=== PATIENT | female | born 1985 | race Caucasian/White ===

== ENCOUNTER 2017-10-15 19:47 | Emergency (ER) | payer OTHER ==
[~2017-10-15] VITALS: Ht 170.2 cm; Wt 59.0 kg
[~2017-10-15 19:47] MED LIST: FLAGYL500 MG PO
[2017-10-15 20:48] LABS: ABSOLUTE BASOPHILS 0.1 thou/uL (0.0-0.2); ABSOLUTE EOSINOPHILS 0.1 thou/uL (0.0-0.7); ABSOLUTE LYMPHOCYTES 2.8 thou/uL (0.8-5.3); ABSOLUTE MONOCYTES 0.4 thou/uL (0.0-1.2); ABSOLUTE NEUTROPHILS 4.1 thou/uL (1.6-8.1); BASOPHILS 0.8 %; EOSINOPHILS 1.5 %; HEMATOCRIT 39.8 % (37.0-47.0); HEMOGLOBIN 13.2 gm/dL (12.0-15.0); LYMPHOCYTES 37.1 %; MCH 30.3 pg (26.0-34.0); MCHC 33.2 g/dL (28.0-37.0); MCV 91.1 fL (80.0-100.0); MONOCYTES 5.2 %; MPV 7.2 fl. (7.2-11.1); NUCLEATED RBCS 0 /100WBC; PLATELET COUNT* 334 thou/uL (150-400); POLYS 55.4 %; RBC 4.37 mil/uL (4.20-5.00); RDW-CV 14.3 % (10.5-14.5); WBC 7.5 thou/uL (4.0-11.0)
[2017-10-15 20:59] LABS: URINE BILIRUBIN NEGATIVE (Negative); URINE BLOOD NEGATIVE (Negative); URINE CLARITY CLEAR; URINE COLOR YELLOW; URINE GLUCOSE-RANDOM NEGATIVE (Negative); URINE KETONES NEGATIVE (Negative); URINE LEUKOCYTES-REFLEX NEGATIVE (Negative); URINE NITRITE-REFLEX NEGATIVE (Negative); URINE PROTEIN NEGATIVE (Negative); URINE UROBILINOGEN 0.2 E.U./dl (0.2-1.0)
[2017-10-15 21:03] LABS: CALCIUM 9.4 mg/dL (8.5-10.1); CREATININE 0.8 mg/dL (0.6-1.3); POTASSIUM 3.6 mmol/L (3.5-5.1)
[2017-10-15 21:20] LABS: ALBUMIN 4.3 g/dL (3.4-5.0); TOTAL BILIRUBIN 0.3 mg/dL (<0.1-1.0); TOTAL PROTEIN 7.8 g/dL (6.4-8.2)
[2017-10-15 23:09] VITALS: BP 114/72
== END 2017-10-15 23:11 | disposition home or self-care (01) ==
LOC: M.ERS 19:47
PROVIDERS: Family Medicine
DX: R10.9 Unspecified abdominal pain (principal); F10.99 Alcohol use, unspecified with unspecified alcohol-induced disorder; Z98.890 Other specified postprocedural states; Z88.1 Allergy status to other antibiotic agents

== ENCOUNTER 2018-01-25 09:41 | Emergency (ER) | payer OTHER ==
[~2018-01-25] VITALS: Ht 170.2 cm; Wt 56.7 kg
[2018-01-25 12:13] VITALS: BP 110/72
== END 2018-01-25 12:15 | disposition home or self-care (01) ==
LOC: M.ERS 09:41
DX: S60.222A Contusion of left hand, initial encounter (principal); Z88.1 Allergy status to other antibiotic agents; Z91.040 Latex allergy status; W01.0XXA Fall on same level from slipping, tripping and stumbling without subsequent striking against object, initial encounter; Y93.89 Activity, other specified; Y92.89 Other specified places as the place of occurrence of the external cause; Y99.8 Other external cause status

== ENCOUNTER 2020-12-07 10:07 | Emergency (ER) | payer OTHER ==
[~2020-12-07] VITALS: Ht 170.2 cm; Wt 59.0 kg
[2020-12-07] MEDS ORDERED: HYDROCODON-ACE1 EAC7 PO (10:42)
[2020-12-07] MEDS ORDERED: PREDNISONE 20 M20 M1 PO (10:42)
[2020-12-07] MEDS ORDERED: FLEXERIL PO (10:42)
[2020-12-07 10:51] VITALS: BP 114/66
== END 2020-12-07 10:51 | disposition home or self-care (01) ==
LOC: M.ERS 10:07
DX: M54.32 Sciatica, left side (principal); Z91.040 Latex allergy status; Z88.1 Allergy status to other antibiotic agents

== ENCOUNTER 2021-01-16 13:07 | Emergency (ER) | payer OTHER ==
[~2021-01-16] VITALS: Ht 167.6 cm; Wt 59.0 kg
[~2021-01-16 13:07] MED LIST changes: +FLEXERIL PO; +HYDROCODON-ACE1 EAC7 PO; +PREDNISONE 20 M20 M1 PO
[2021-01-16] MEDS ORDERED: ZANAFLEX4 MG PO (15:05)
[2021-01-16] MEDS ORDERED: NORCO5 PO (15:05)
[2021-01-16] MEDS ORDERED: NAPROSYN500 MG PO (15:05)
[2021-01-16] MEDS ORDERED: MEDROLDOSEPACK PO (15:05)
[2021-01-16 15:10] VITALS: BP 110/74
== END 2021-01-16 15:10 | disposition home or self-care (01) ==
LOC: M.ERS 13:07
DX: M54.42 Lumbago with sciatica, left side (principal); F17.210 Nicotine dependence, cigarettes, uncomplicated; Z88.1 Allergy status to other antibiotic agents; Z91.040 Latex allergy status

== ENCOUNTER 2021-02-20 12:09 | Emergency (ER) | payer OTHER ==
[~2021-02-20] VITALS: Ht 170.2 cm; Wt 54.4 kg
[~2021-02-20 12:09] MED LIST changes: +MEDROLDOSEPACK PO; +NAPROSYN500 MG PO; +NORCO5 PO; +ZANAFLEX4 MG PO
[2021-02-20 12:51] LABS: URINE BILIRUBIN NEGATIVE (Negative); URINE BLOOD TRACE (Negative); URINE CLARITY CLEAR; URINE COLOR YELLOW; URINE GLUCOSE-RANDOM NEGATIVE (Negative); URINE KETONES NEGATIVE (Negative); URINE LEUKOCYTES-REFLEX NEGATIVE (Negative); URINE NITRITE-REFLEX NEGATIVE (Negative); URINE PROTEIN NEGATIVE (Negative); URINE SPECIFIC GRAVITY 1.015 (1.005-1.030); URINE UROBILINOGEN 0.2 E.U./dl (0.2-1.0)
[2021-02-20] MEDS ORDERED: PREDNISONE 10 M10 MG PO (12:59)
[2021-02-20] MEDS ORDERED: FLEXERIL PO (12:59)
[2021-02-20] MEDS ORDERED: HYDROCODON-ACE1 EAC7 PO ×2 (12:59→13:00)
[2021-02-20 13:30] VITALS: BP 101/60
[2021-02-21] MEDS ORDERED: HYDROCODON-ACE1 EAC7 PO (11:42)
== END 2021-02-20 13:31 | disposition home or self-care (01) ==
LOC: M.ERS 12:09
PROVIDERS: Physician Assistant
DX: M54.32 Sciatica, left side (principal); F17.210 Nicotine dependence, cigarettes, uncomplicated; Z88.1 Allergy status to other antibiotic agents; Z91.040 Latex allergy status; Z91.018 Allergy to other foods

== ENCOUNTER 2021-04-07 10:10 | Emergency (ER) | payer OTHER ==
[~2021-04-07] VITALS: Ht 170.2 cm; Wt 57.6 kg
[~2021-04-07 10:10] MED LIST changes: +PREDNISONE 10 M10 MG PO
[2021-04-07 10:22] VITALS: BP 109/73
[2021-04-07 12:41] LABS: URINE BILIRUBIN NEGATIVE (Negative); URINE BLOOD NEGATIVE (Negative); URINE CLARITY CLEAR; URINE COLOR YELLOW; URINE GLUCOSE-RANDOM NEGATIVE (Negative); URINE KETONES NEGATIVE (Negative); URINE LEUKOCYTES-REFLEX NEGATIVE (Negative); URINE NITRITE-REFLEX NEGATIVE (Negative); URINE PROTEIN NEGATIVE (Negative); URINE UROBILINOGEN 0.2 E.U./dl (0.2-1.0)
[2021-04-07] MEDS ORDERED: PREDNISONE50 MG PO (12:51)
[2021-04-07] MEDS ORDERED: HYDROCODON-ACE1 EAC7 PO (12:51)
== END 2021-04-07 13:01 | disposition home or self-care (01) ==
LOC: M.ERS 10:10
PROVIDERS: Nurse Practitioner Family
DX: M54.42 Lumbago with sciatica, left side (principal); Z91.040 Latex allergy status; Z88.1 Allergy status to other antibiotic agents; Z91.018 Allergy to other foods

== ENCOUNTER 2021-08-15 07:25 | Emergency (ER) | payer OTHER, MEDICAID ==
[~2021-08-15] VITALS: Ht 170.2 cm; Wt 59.0 kg
[~2021-08-15 07:25] MED LIST changes: +PREDNISONE50 MG PO
[2021-08-15 07:33] VITALS: BP 110/71
[2021-08-15] MEDS ORDERED: FLEXERIL PO (07:51)
[2021-08-15] MEDS ORDERED: HYDROCODON-ACE1 EAC7 PO (07:51)
[2021-08-15] MEDS ORDERED: IBUPROFEN 800800 M1 PO (07:51)
== END 2021-08-15 08:41 | disposition home or self-care (01) ==
LOC: M.ERS 07:25
DX: M54.59 Other low back pain (principal); F17.210 Nicotine dependence, cigarettes, uncomplicated; Z90.89 Acquired absence of other organs; Z88.1 Allergy status to other antibiotic agents; Z91.040 Latex allergy status; Z91.02 Food additives allergy status

== ENCOUNTER 2021-08-19 11:14 | Emergency (ER) | payer OTHER, MEDICAID ==
[~2021-08-19] VITALS: Ht 170.2 cm; Wt 56.7 kg
--- NOTE | ~2021-08-19 | EMS ---
[facility] [address] [place] [address] EMS Patient Care Report Name: KAYLEE LOBO [id number] Admission: 08/19/21 Attend Phys: Discharge: Date of : 87 Report #: [id number] THIS REPORT FOR: //name// Report Transmitted: 08/19/2021 10:45 EMS Care Summary [facility] [place] Incident [id number] @ 08/19/2021 10:25 Incident Location [address] [place] [address] Patient Kaylee Lobo Female, 35 Years 1985 Patient Address [address] [place] [address] Patient History Tobacco use, Patient Allergies , Patient Medications Ibuprofen, Chief Complaint Back pain Disposition Transported No Lights/[place] Dispatch Reason Back Pain (Non-Traumatic) Transported To [facility] Narrative Dispatched to address noted for back pain. [facility] en route and on scene at time noted. Arrived and found the female patient, laying in bed on her right side. Patient was alert and oriented and stated that she had pain in her lower back that radiated to her left leg. Patient stated she was seen at the ED not [facility] [address] [place] [address] EMS Patient Care Report Name: KAYLEE LOBO Room: [facility] Anna#: [id number] Admission: 08/19/21 Attend Phys: Discharge: Date of : 87 Report #: [id number] long ago for nerve problems and has an appointment to see a specialist in october. Patient believes she exacerbated her symptoms when she was helping her disabled daughter from a wheel chair a few days ago but the the pain as been persistent since the 14 of August. Patient wants to be seen at [facility] for care. Patient was moved to a stair chair by self transfer and then wheeled out to stretcher, where she transferred herself to the stretcher and was buckled in laying on her right side flat. Once in ambulance, vitals where taken at time noted and transport was started. While en route, patient would cry out in pain with bumps in the road. CMS was intact in both feet and no history pertinent to the complaint noted. Radio report was given at time noted. Patient stated she took an ibuprofen 800 MG tablet and two of her unknown name or dose muscle relaxers this morning at 0600 with no relief. Arrived and took patient to room. Patient was moved to bed and RN was given verbal report. RN signed for patient and patient signed for self. END REPORT EMT-P Shabbir Villavicencio Initial Vitals @11:03Pain: 05/06, @10:46Pain: 05/06, @10:51P: 66,R: 16,BP: 134/80, @11:02P: 56,R: 14,BP: 124/67, @10:51GCS: 15, @11:02GCS: 15, @10:46 Assessments @10:46MENTAL:SKIN:HEENT:LUNG SOUNDS:ABDOMEN:PELVIS//GI:EXTREMITIES:PULSE:NEURO: Impression Back Pain Timeline 10:57,Call Received 10:24,Dispatch Notified 10:24,Psap Call 10:25,Dispatched 10:25,En Route 10:45,On Scene 10:46,At Patient 10:46,BP: / M,PULSE: ,RR: R,SPO2: Ox,ETCO2: ,BG: ,PAIN: 8,GCS: , 10:46,BP: / M,PULSE: ,RR: R,SPO2: Ox,ETCO2: ,BG: ,PAIN: ,GCS: , 10:51,BP: 134/80 M,PULSE: 66,RR: 16 R,SPO2: Ox,ETCO2: ,BG: ,PAIN: ,GCS: , 10:51,BP: / M,PULSE: ,RR: R,SPO2: Ox,ETCO2: ,BG: ,PAIN: ,GCS: 15, 11:02,BP: 124/67 M,PULSE: 56,RR: 14 R,SPO2: Ox,ETCO2: ,BG: ,PAIN: ,GCS: , [place] [address] EMS Patient Care Report Name: KAYLEE LOBO [facility] [id number] Admission: 08/19/21 Attend Phys: Discharge: Date of : 87 Report #: [id number] 11:02,BP: / M,PULSE: ,RR: R,SPO2: Ox,ETCO2: ,BG: ,PAIN: ,GCS: 15, 11:03,BP: / M,PULSE: ,RR: R,SPO2: Ox,ETCO2: ,BG: ,PAIN: 8,GCS: , 11:12,Depart Scene 11:12,At Destination 11:20,Call Closed Disclaimer v1.1 Copyright 2020 [employer] This EMS Care Summary contains data elements from the applicable legal record (which may be displayed differently). It is designed to provide pertinent information for the following purposes: continuity of care, clinical quality, and state data reporting. The complete legal record is available to ED staff and administrators of the receiving hospital in [employer]'s Patient Tracker. All data is provided "as is."
[~2021-08-19 11:14] MED LIST changes: +IBUPROFEN 800800 M1 PO
[2021-08-19] MEDS ORDERED: MEDROLDOSEPACK PO (12:10)
[2021-08-19 13:15] VITALS: BP 95/69
== END 2021-08-19 13:15 | disposition home or self-care (01) ==
LOC: M.ERS 11:14
DX: M54.42 Lumbago with sciatica, left side (principal); F17.200 Nicotine dependence, unspecified, uncomplicated; Z90.89 Acquired absence of other organs; Z88.1 Allergy status to other antibiotic agents; Z91.018 Allergy to other foods; Z91.040 Latex allergy status

== ENCOUNTER 2021-08-31 05:04 | Emergency (ER) | payer OTHER, MEDICAID ==
[~2021-08-31] VITALS: Ht 170.2 cm; Wt 56.7 kg
--- NOTE | ~2021-08-31 | EMS ---
[facility] [address] [place] [address] EMS Patient Care Report Name: KAYLEE VELASQUEZ [facility] [id number] Admission: 08/31/21 Attend Phys: Discharge: Date of : 87 Report #: [id number] THIS REPORT FOR: //name// Report Transmitted: 08/31/2021 05:22 EMS Care Summary [facility] [place] Incident [id number] @ 08/31/2021 04:16 Incident Location [address] [place] [address] Patient JUNE VELASQUEZ Female, 35 Years 1985 Patient Address [address] [place] [address] Patient History Other chronic pain, Patient Allergies , Patient Medications Prednisone, Chief Complaint Back pain Disposition Transported No Lights/[place] Dispatch Reason Back Pain (Non-Traumatic) Transported To [facility] Narrative [id number] DISPATCHED TO RESIDENCE ABOVE FOR A 35 YEAR OLD FEMALE WITH A CHIEF COMPLAINT OF SEVERE CHRONIC BACK PAIN. ON SCENE [id number] FOUND THE PATIENT HOBBLING OUT TO THE AMBULANCE WHILE HUNCHED OVER. NO LIFETHREATS WHERE FOUND ON PRIMARY ASSESSMENT. PATIENT REPORTS SEVERE BACK PAIN, 07/06. PATIENT REPORTS [facility] [address] [place] [address] EMS Patient Care Report Name: KAYLEE VELASQUEZ [id number] Admission: 08/31/21 Attend Phys: Discharge: Date of : 87 Report #: [id number] TINGLING AND NUMBNESS THAT TRAVELS DOWN HER LEGS. PATIENT WAS ASSISTED INTO THE BACK OF THE AMBULANCE AND PATIENT LAID ON THE COT IN A HUNCHED OVER POSITION. PATIENT STATES THAT THIS POSITION WAS MOST CONFRETABLE. PATIENT WAS SECURED WITH SAFETY STRAPS. PATIENT WAS TRANSPORTED TO [facility] ER ROOM 10. IN THE AMBULANCE THE PATIENT WAS HOOKED UP TO THE MONITOR AND VITALS WERE RECORDED DOCUMENTED. PATIENT SEEMED VERY ANXIOUS AND SEEMED TO BE IN A LOT OF PAIN. PATIENT CRYING IN PAIN. PATIENT HAD TROUBLE KEEPING STILL. BESIDES THE PAIN THE PATIENT REMAINED STABLE THROUGHOUT TRANSPORT. NO INCIDENTS OCCURRED DURING TRANSPORT. AT DESTINATION PATIENT GAVE VERBAL CONSENT DUE TO PATIENT DISCOMFORT, THE PATIENT STATED SHE COULD NOT SIGN. SHE WITNESSED HER INITIALS BEING SIGNED FOR TRANSPORT. HER VERBAL CONSENT WAS WITNESSED BY BOTH CREW MEMBERS. PATIENT WAS UNLOADED FROM THE AMBULANCE AND WAS WHEELED INTO THE HOSPITAL. PATIENT WAS WHEELED TO JUST OUTSIDE OF ER ROOM 10 AND LOWERED. PATIENT WAS UNSECURED AND PATIENT WAS ABLE TO WALK INTO PATIENT ROOM WITHOUT ASSISTENCE. PATIENT CARE REPORT WAS GIVEN TO NURSE. PATIENT CARE WAS TRANSFERRED TO NURSE. [id number] CLEAR Initial Vitals @04:55Pain: 07/06, @04:45Pain: 07/06, @04:55P: 85,R: 12,BP: 118/63, @04:45P: 86,R: 14,BP: 104/61, @04:55GCS: 15, @04:45GCS: 15, Assessments @04:37MENTAL:SKIN:HEENT:LUNG SOUNDS:ABDOMEN:PELVIS//GI:EXTREMITIES:PULSE:NEURO: Impression Back Pain Timeline 04:15,Dispatch Notified 04:15,Psap Call 04:16,Dispatched 04:16,En Route 04:36,On Scene 04:37,At Patient 04:45,Depart Scene 04:45,BP: / M,PULSE: ,RR: R,SPO2: Ox,ETCO2: ,BG: ,PAIN: 10,GCS: , 04:45,BP: 104/61 M,PULSE: 86,RR: 14 R,SPO2: Ox,ETCO2: ,BG: ,PAIN: ,GCS: , 04:45,BP: / M,PULSE: ,RR: R,SPO2: Ox,ETCO2: ,BG: ,PAIN: ,GCS: 15, 04:55,BP: / M,PULSE: ,RR: R,SPO2: Ox,ETCO2: ,BG: ,PAIN: 10,GCS: , 04:55,BP: 118/63 M,PULSE: 85,RR: 12 R,SPO2: Ox,ETCO2: ,BG: ,PAIN: ,GCS: , [place] [address] EMS Patient Care Report Name: KAYLEE VELASQUEZ Room[facility]#: [id number] Admission: 08/31/21 Attend Phys: Discharge: Date of : 87 Report #: [id number] 04:55,BP: / M,PULSE: ,RR: R,SPO2: Ox,ETCO2: ,BG: ,PAIN: ,GCS: 15, 05:00,At Destination 05:10,Call Closed Disclaimer v1.1 Copyright 2020 [employer] This EMS Care Summary contains data elements from the applicable legal record (which may be displayed differently). It is designed to provide pertinent information for the following purposes: continuity of care, clinical quality, and state data reporting. The complete legal record is available to ED staff and administrators of the receiving hospital in [employer]'s Patient Tracker. All data is provided "as is."
[2021-08-31] MEDS ORDERED: TRAMADOL 50 MG50 MG PO (06:16)
[2021-08-31] MEDS ORDERED: NORFLEX100 MG PO ×2 (06:16→19:01)
[2021-08-31 06:33] LABS: AMP/METHAMP Negative (Negative); BARBITURATES Negative (Negative); BENZODIAZEPINES Negative (Negative); COCAINE Negative (Negative); METHADONE Negative (Negative); OPIATES POSITIVE (Negative); PCP Negative (Negative); THC POSITIVE (Negative)
[2021-08-31 06:37] LABS: URINE BLOOD NEGATIVE (Negative); URINE CLARITY CLEAR; URINE COLOR YELLOW; URINE GLUCOSE-RANDOM NEGATIVE (Negative); URINE KETONES NEGATIVE (Negative); URINE LEUKOCYTES-REFLEX NEGATIVE (Negative); URINE NITRITE-REFLEX NEGATIVE (Negative); URINE PROTEIN NEGATIVE (Negative); URINE SPECIFIC GRAVITY 1.025 (1.005-1.030)
[2021-08-31 06:40] LABS: ICTOTEST (BILI CONFIRMATORY) Negative (Negative); URINE BILIRUBIN 2+ (Negative)
[2021-08-31 06:58] VITALS: BP 136/70
== END 2021-08-31 06:58 | disposition home or self-care (01) ==
LOC: M.ERS 05:04
PROVIDERS: Emergency Medicine
DX: M54.16 Radiculopathy, lumbar region (principal); Z90.89 Acquired absence of other organs; Z91.040 Latex allergy status; Z88.1 Allergy status to other antibiotic agents; Z91.02 Food additives allergy status